=== PATIENT | female | born 1990 | race Two or more races ===

== ENCOUNTER 2016-11-16 13:02 | Emergency (ER) | payer SELFPAY ==
[~2016-11-16] VITALS: Ht 165.1 cm; Wt 67.6 kg
[2016-11-16 14:07] LABS: BILIRUBIN,URINE NEGATIVE (NEG); GLUCOSE,URINE NEGATIVE (NEG); NITRITE,URINE NEGATIVE (NEG); PH,URINE 5.5; PROTEIN,URINE NEGATIVE (NEG-TRACE); UROBILINOGEN,URINE 0.2 mg/dL (0.2 mg/dL)
[2016-11-16 14:40] LABS: BASO # 0.1 x10^3/uL (0.0-0.2); BASO % 1 % (0-3); EOS % 1 % (0-3); HEMATOCRIT 39.2 % (36.0-47.0); HEMOGLOBIN 13.5 g/dL (12.0-15.5); LYMPH # 1.7 x10^3/uL (1.0-4.8); LYMPH % 26 % (24-48); MEAN CORPUSCULAR HEMOGLOBIN 30 pg (25-35); MEAN CORPUSCULAR HGB CONC 35 g/dL (31-37); MEAN CORPUSCULAR VOLUME 87 fL (79-100); MONO % 8 % (0-9); NEUT % 64 % (31-73); PLATELET COUNT 194 x10^3/uL (140-400); RED BLOOD COUNT 4.51 x10^6/uL (3.50-5.40); RED CELL DISTRIBUTION WIDTH 13.7 % (11.5-14.5); WHITE BLOOD COUNT 6.7 x10^3/uL (4.0-11.0)
[2016-11-16 14:48] LABS: BACTERIA,URINE FEW /HPF (0-FEW); RBC,URINE 0 /HPF (0-2); SQUAMOUS EPITHELIAL CELL,UR OCC /LPF; WBC,URINE OCC /HPF (0-4)
--- NOTE | 2016-11-16 14:49 | RAD ---
Early OB ultrasound History: abd pain in Technique: Realtime grayscale examination of the pelvis was performed transvaginally. Findings: The uterus measures 12.3 x 7.2 x 9.1 cm. An intrauterine is detected, with heart tones measuring 162 beats per minute. A gestational sac and yolk sac are seen. [place]-rump length measures 3.4 millimeters. The pole measures 10 weeks and 2 days. EDC by ultrasound is 06/12/2017. EDC by LMP is 06/14/2017 Normal right ovary measuring 3.5 x 2.1 x 1.5 cm. The left ovary measures 4.2 x 3.2 x 2.6 cm with a simple cyst measuring 2.4 x 3.1 x 2.2 cm. Impression: 1. A single intrauterine is detected with pole length corresponding to an age of 10 weeks and 2 days. EDC by ultrasound is 06/12/2017 and by LMP is 06/14/2017. heart rate is 162 bpm. 2. Simple left ovarian cyst.
[2016-11-16 14:54] LABS: CALCIUM 8.8 mg/dL (8.5-10.1); CREATININE 0.6 mg/dL (0.6-1.0); POTASSIUM 3.4 mmol/L (3.5-5.1)
[2016-11-16 15:00] LABS: ALBUMIN 3.8 g/dL (3.4-5.0); ALBUMIN/GLOBULIN RATIO 0.8 (1.0-1.7); TOTAL BILIRUBIN 0.3 mg/dL (0.2-1.0); TOTAL PROTEIN 8.5 g/dL (6.4-8.2)
[2016-11-16] MEDS ORDERED: METR500T PO (16:04)
--- NOTE | 2016-11-16 16:04 | PHYS DOC ---
Past Medical History Past Medical History: No Pertinent History Past Surgical History: Appendectomy Alcohol Use: None Drug Use: None Adult General Chief Complaint Chief Complaint: ABDOMINAL PAIN IN HPI HPI Patient is a 26 year old female 5 para 4 who presents today with bilateral lower abdominal pain intermittently for 2 weeks. Patient states she is currently 11 weeks . Patient states she was seen at a local clinic and was sent to the ED to be evaluated. Patient denies any vaginal bleeding. Denies any back pain. Denies any urgency frequency dysuria. Denies any concerns for STDs. Review of Systems Review of Systems Constitutional: Denies fever or chills [] Eyes: Denies change in visual acuity, redness, or eye pain [] HENT: Denies nasal congestion or sore throat [] Respiratory: Denies cough or shortness of breath [] Cardiovascular: No additional information not addressed in HPI [] GI: Abdominal pain in : Denies dysuria or hematuria [] Musculoskeletal: Denies back pain or joint pain [] Integument: Denies rash or skin lesions [] Neurologic: Denies headache, focal weakness or sensory changes [] Endocrine: Denies polyuria or polydipsia [] Allergies Allergies Allergies Coded Allergies Type Severity Reaction Last Updated Verified morphine Allergy Intermediate Rash 11/16/16 Yes Physical Exam Physical Exam Constitutional: Well developed, well nourished, no acute distress, non-toxic appearance. [] HENT: Normocephalic, atraumatic, bilateral external ears normal, oropharynx moist, no oral exudates, nose normal. [] Eyes: PERRLA, EOMI, conjunctiva normal, no discharge. [] Neck: Normal range of motion, no tenderness, supple, no stridor. [] Cardiovascular:Heart rate regular rhythm, no murmur [] Lungs & Thorax: Bilateral breath sounds clear to auscultation [] Abdomen: Bowel sounds normal, soft, no tenderness, no masses, no pulsatile masses. [] Pelvic exam External pelvic appears normal, cervix is closed, no CMT, no adnexal tenderness , small amount of discharge white in color in the vaginal vault, Skin: Warm, dry, no erythema, no rash. [] Back: No tenderness, no CVA tenderness. [] Extremities: No tenderness, no cyanosis, no clubbing, ROM intact, no edema. [] Neurologic: Alert and oriented X 3, normal motor function, normal sensory function, no focal deficits noted. [] Psychologic: Affect normal, judgement normal, mood normal. [] Current Patient Data Vital Signs Vital Signs Date Time Temp Pulse Resp B/P (MAP) Pulse Ox O2 Delivery O2 Flow Rate FiO2 11/16/16 15:17 45 16 104/50 (68) 99 Room Air 11/16/16 13:32 98.4 98.4 Lab Values Laboratory Tests Test 11/16/16 12:48 11/16/16 13:30 11/16/16 14:30 POC Urine HCG, Qualitative Hcg positive (Negative) Urine Color Yellow Urine Clarity Clear Urine pH 5.5 Urine Specific Christoval <=1.005 Urine Protein Negative mg/dL (NEG-TRACE) Urine Glucose (UA) Negative mg/dL (NEG) Urine Ketones (Stick) Negative mg/dL (NEG) Urine Blood Negative (NEG) Urine Nitrite Negative (NEG) Urine Bilirubin Negative (NEG) Urine Urobilinogen Dipstick 0.2 mg/dL (0.2 mg/dL) Urine Leukocyte Esterase Negative (NEG) Urine RBC 0 /HPF (0-2) Urine WBC Occ /HPF (0-4) Urine Squamous Epithelial Cells Occ /LPF Urine Bacteria Few /HPF (0-FEW) White Blood Count 6.7 x10^3/uL (4.0-11.0) Red Blood Count 4.51 x10^6/uL (3.50-5.40) Hemoglobin 13.5 g/dL (12.0-15.5) Hematocrit 39.2 % (36.0-47.0) Mean Corpuscular Volume 87 fL (79-100) Mean Corpuscular Hemoglobin 30 pg (25-35) Mean Corpuscular Hemoglobin Concent 35 g/dL (31-37) Red Cell Distribution Width 13.7 % (11.5-14.5) Platelet Count 194 x10^3/uL (140-400) Neutrophils (%) (Auto) 64 % (31-73) Lymphocytes (%) (Auto) 26 % (24-48) Monocytes (%) (Auto) 8 % (0-9) Eosinophils (%) (Auto) 1 % (0-3) Basophils (%) (Auto) 1 % (0-3) Neutrophils # (Auto) 4.3 x10^3uL (1.8-7.7) Lymphocytes # (Auto) 1.7 x10^3/uL (1.0-4.8) Monocytes # (Auto) 0.5 x10^3/uL (0.0-1.1) Eosinophils # (Auto) 0.1 x10^3/uL (0.0-0.7) Basophils # (Auto) 0.1 x10^3/uL (0.0-0.2) Maternal Serum HCG Beta Subunit 45759 mIU/mL (0-5) H Sodium Level 139 mmol/L (136-145) Potassium Level 3.4 mmol/L (3.5-5.1) L Chloride Level 103 mmol/L (98-107) Carbon Dioxide Level 27 mmol/L (21-32) Anion Gap 9 (6-14) Blood Urea Nitrogen 5 mg/dL (7-20) L Creatinine 0.6 mg/dL (0.6-1.0) Estimated GFR (Cockcroft-Gault) 119.0 BUN/Creatinine Ratio 8 (6-20) Glucose Level 82 mg/dL (70-99) Calcium Level 8.8 mg/dL (8.5-10.1) Total Bilirubin 0.3 mg/dL (0.2-1.0) Aspartate Amino Transferase (AST) 18 U/L (15-37) Alanine Aminotransferase (ALT) 18 U/L (14-59) Alkaline Phosphatase 45 U/L (46-116) L Total Protein 8.5 g/dL (6.4-8.2) H Albumin 3.8 g/dL (3.4-5.0) Albumin/Globulin Ratio 0.8 (1.0-1.7) L Lipase 190 U/L (73-393) Laboratory Tests 11/16/16 14:30 Laboratory Tests 11/16/16 14:30 Microbiology 11/16/16 Wet Prep - Final, Complete EKG EKG [] Radiology/Procedures Radiology/Procedures []PROCEDURE: OB < 14 WKS Early OB ultrasound History: abd pain in Technique: Realtime grayscale examination of the pelvis was performed transvaginally. Findings: The uterus measures 12.3 x 7.2 x 9.1 cm. An intrauterine is detected, with heart tones measuring 162 beats per minute. A gestational sac and yolk sac are seen. [place]-rump length measures 3.4 millimeters. The pole measures 10 weeks and 2 days. EDC by ultrasound is 06/12/2017. EDC by LMP is 06/14/2017 Normal right ovary measuring 3.5 x 2.1 x 1.5 cm. The left ovary measures 4.2 x 3.2 x 2.6 cm with a simple cyst measuring 2.4 x 3.1 x 2.2 cm. Impression: 1. A single intrauterine is detected with pole length corresponding to an age of 10 weeks and 2 days. EDC by ultrasound is 06/12/2017 and by LMP is 06/14/2017. heart rate is 162 bpm. 2. Simple left ovarian cyst. DICTATED and SIGNED BY: RIO WELLS MD DATE: 11/16/16 8766 CC: ALLYSSA ALVAREZ APRN; NON,STAFF; UNKNOWN PCP NAME ~ Course & Med Decision Making Course & Med Decision Making Pertinent Labs and Imaging studies reviewed. (See chart for details) This is a 26-year-old female patient presenting to the ED today with lower abdominal pain intermittently for 2 weeks. Positive urine hCG, CBC CMP lipase with no acute findings. Beta hCG [id number]. Urine analysis is negative for infection. Wet prep positive for BV. Patient will be discharged and Flagyl. First trimester OB ultrasound positive for IUP heart rate of 162 gestational age 10 weeks. Patient also has a simple left ovarian cyst. Patient will be discharged with instructions to follow-up with her [employer]. She states she has an appointment in 24 hours. She was provided return precautions and discharged in stable condition. Dragon Disclaimer Dragon Disclaimer This electronic medical record was generated, in whole or in part, using a voice recognition dictation system. Departure Departure Impression: Primary Impression: Abdominal pain affecting Additional Impression: Bacterial vaginosis Disposition: 01 HOME, SELF-CARE Condition: STABLE Referrals: UNKNOWN PCP NAME (PCP) Follow-up with your [employer] in the next 24-48 hours Patient Instructions: Abdominal Pain During , Bacterial Vaginosis, [id number] Additional Instructions: You were seen for abdominal pain in . We recommend you follow-up with your [employer] tomorrow. Take Tylenol as needed for pain. You also have bacterial vaginosis. This is not an STD. Complete your antibiotics we prescribed to clear this infection. Scripts Metronidazole (FLAGYL) 500 Mg Tablet 1 TAB PO BID, #14 TAB Prov: ALLYSSA ALVAREZ APRN 11/16/16 Problem Qualifiers ALLYSSA ALVAREZ APRN Nov 16, 2016 16:04
[2016-11-16 16:07] VITALS: BP 108/58
== END 2016-11-16 16:25 | disposition home or self-care (01) ==
LOC: ER 13:02
DX: O26.891 Other specified pregnancy related conditions, first trimester (principal); O23.591 Infection of other part of genital tract in pregnancy, first trimester; R10.9 Unspecified abdominal pain; N76.0 Acute vaginitis; Z3A.11 11 weeks gestation of pregnancy; Z90.89 Acquired absence of other organs
CPT/HCPCS: 36415; 76801; 80053; 81001; 81025; 83690; 84702; 85027; 87491; 87591; 99285; Q0111

== ENCOUNTER 2017-05-29 21:21 | Inpatient (IN) | payer SELFPAY ==
[2017-05-29] MEDS: IV RINGERS,LACTATED 1000ML 1,000 ML IV ×2 (22:30)
[2017-05-30] MEDS: AMPICILLIN SODIUM IV Push 2 GM VIAL. IVP ×2
[2017-05-30] MEDS: IV RINGERS,LACTATED 1000ML 1,000 ML IV ×2 (00:01)
[2017-05-30] MEDS ORDERED: ACETAMINOPHEN 325 MG TABLET. PO ×2 (00:45)
[2017-05-30] MEDS ORDERED: IBUPROFEN 600 MG TABLET. PO ×2 (00:45)
[2017-05-30] MEDS ORDERED: LIDOCAINE 1% PF 30 ML VIAL. INJ ×2 (00:45)
[2017-05-30] MEDS ORDERED: TERBUTALINE 1 MG/ML VIAL. SQ ×2 (00:45)
[2017-05-30] MEDS ORDERED: MAG HYDROX/ALUMINUM HYD/SIMETH 30 ML ORAL.SUSP PO ×2 (00:45)
[2017-05-30] MEDS ORDERED: ONDANSETRON PF 4 MG/2 ML VIAL. IV ×2 (00:45)
[2017-05-30 00:58] LABS: ADD MAN DIFF? NO
[2017-05-30 01:01] LABS: BASO # 0.1 x10^3/uL (0.0-0.2); BASO % 1 % (0-3); EOS # 0.1 x10^3/uL (0.0-0.7); EOS % 1 % (0-3); HEMATOCRIT 36.6 % (36.0-47.0); HEMOGLOBIN 12.6 g/dL (12.0-15.5); LYMPH # 1.9 x10^3/uL (1.0-4.8); LYMPH % 22 % (24-48); MEAN CORPUSCULAR HEMOGLOBIN 30 pg (25-35); MEAN CORPUSCULAR HGB CONC 34 g/dL (31-37); MEAN CORPUSCULAR VOLUME 86 fL (79-100); MONO # 0.8 x10^3/uL (0.0-1.1); MONO % 9 % (0-9); NEUT # 5.8 x10^3uL (1.8-7.7); NEUT % 67 % (31-73); PLATELET COUNT 221 x10^3/uL (140-400); RED BLOOD COUNT 4.23 x10^6/uL (3.50-5.40); RED CELL DISTRIBUTION WIDTH 13.5 % (11.5-14.5); WHITE BLOOD COUNT 8.6 x10^3/uL (4.0-11.0)
[2017-05-30] MEDS: fentaNYL PF VIAL 100 MCG/2 ML VIAL IV ×6 (01:25→03:05)
[2017-05-30] MEDS: OXYTOCIN 30 UNIT/500 ML PREMIX 500 ML IV ×2 (02:14)
[2017-05-30] MEDS: AMPICILLIN SODIUM IV Push 1 GM VIAL. IVP ×2 (04:00)
[2017-05-30] MEDS ORDERED: L&D EPIDURAL CASSETTE 100 ML EP ×2 (05:30)
[2017-05-30] MEDS: IBUPROFEN 800 MG TABLET. PO ×2 (08:31)
[2017-05-30] MEDS ORDERED: L&D EPIDURAL SYRINGE 50 ML EP ×2 (10:00)
[2017-05-30] MEDS: oxyCODONE/APAP 5/325 1 TAB TABLET PO ×4 (13:25→20:39)
[2017-05-30] MEDS: DOCUSATE SODIUM 100 MG CAPSULE. PO ×2 (20:38)
[2017-05-31] MEDS ORDERED: SUCCINYLCHOLINE 200 MG/10 ML VIAL. ×2 (07:18)
[2017-05-31] MEDS ORDERED: PROPOFOL 20 ML IV ×2 (07:18)
[2017-05-31] MEDS ORDERED: fentaNYL PF VIAL 100 MCG/2 ML VIAL ×4 (07:18→08:39)
[2017-05-31] MEDS ORDERED: LIDOCAINE 2% PF Vial for OR 5 ML VIAL. ×2 (07:18)
[2017-05-31] MEDS ORDERED: ROCURONIUM 50 MG/5 ML VIAL. ×2 (07:18)
[2017-05-31] MEDS: IV RINGERS,LACTATED 1000ML 1,000 ML IV ×4 (07:24→09:14)
[2017-05-31] MEDS ORDERED: fentaNYL PF VIAL 100 MCG/2 ML VIAL IV ×2 (07:30)
[2017-05-31] MEDS ORDERED: HYDROmorphone 2 MG/ML VIAL IV ×2 (07:30)
[2017-05-31] MEDS ORDERED: PROCHLORPERAZINE 10 MG/2 ML VIAL. IV ×2 (07:30)
[2017-05-31] MEDS ORDERED: ONDANSETRON PF 4 MG/2 ML VIAL. IV ×2 (07:30)
[2017-05-31] MEDS ORDERED: MORPHINE SULFATE 2 MG/ML DISP.SYRIN. IV ×2 (07:30)
[2017-05-31] MEDS ORDERED: LIDOCAINE 1% PF 2 ML VIAL. ID ×2 (07:30)
[2017-05-31] MEDS: BUPIVACAINE-EPI 0.25%-1:200000 50 ML VIAL. ×2 (07:30)
[2017-05-31 07:35] LABS: RPR Non Reactive (Non Reactive)
[2017-05-31] MEDS ORDERED: DEXAMETHASONE SOD PHOS 20 MG/5 ML VIAL. ×2 (07:59)
[2017-05-31] MEDS ORDERED: ONDANSETRON PF 4 MG/2 ML VIAL. ×2 (07:59)
[2017-05-31] MEDS ORDERED: FAMOTIDINE 20 MG/2 ML VIAL ×2 (08:00)
[2017-05-31] MEDS ORDERED: METOCLOPRAMIDE HCL 10 MG/2 ML VIAL. ×2 (08:00)
[2017-05-31] MEDS ORDERED: KETOROLAC 30 MG/ML INJ FOR OR. INJ ×2 (08:18)
[2017-05-31] MEDS ORDERED: DESFLURANE 31 TO 60 MINUTES IH ×2 (08:19)
[2017-05-31] MEDS ORDERED: GLYCOPYRROLATE 1 MG/5 ML VIAL. ×2 (08:25)
[2017-05-31] MEDS ORDERED: NEOSTIGMINE METHYLSULFATE 5 MG/5 ML SYRINGE. ×2 (08:25)
[2017-05-31] MEDS: fentaNYL PF VIAL 100 MCG/2 ML VIAL IV ×2 (09:06)
[2017-05-31] MEDS: DIPHTH,PERTUSS(ACELL),TET TOX 0.5 ML DISP.SYRIN. VAX IM ×2 (09:30)
[2017-05-31] MEDS: IBUPROFEN 800 MG TABLET. PO ×4 (11:04→17:31)
[2017-05-31] MEDS: MAGNESIUM HYDROXIDE 2,400 MG/30 ML ORAL.SUSP. PO ×2 (20:28)
[2017-05-31] MEDS: DOCUSATE SODIUM 100 MG CAPSULE. PO ×2 (20:29)
[2017-06-01] MEDS: IBUPROFEN 800 MG TABLET. PO ×4 (06:22→17:25)
[2017-06-01] MEDS: DOCUSATE SODIUM 100 MG CAPSULE. PO ×2 (09:57)
[2017-06-01] MEDS: oxyCODONE/APAP 5/325 1 TAB TABLET PO ×2 (17:24)
== END 2017-06-01 17:55 | disposition home or self-care (01) | DRG 767 ==
LOC: 3 SO LND 21:21 → 3 NORTH 05-30 07:05
PROC: 0UL70ZZ Occlusion of Bilateral Fallopian Tubes, Open Approach (ICD-10-PCS; 2017-05-31 07:30)
PROC: 10E0XZZ Delivery of Products of Conception, External Approach (ICD-10-PCS; principal; 2017-05-31 07:50)
PROC: 10907ZC Drainage of Amniotic Fluid, Therapeutic from Products of Conception, Via Natural or Artificial Opening (ICD-10-PCS; 2017-05-31 07:50)
PROC: 3E0234Z Introduction of Serum, Toxoid and Vaccine into Muscle, Percutaneous Approach (ICD-10-PCS; 2017-05-31 07:50)
DX: O80 Encounter for full-term uncomplicated delivery (principal); Z23 Encounter for immunization; Z30.2 Encounter for sterilization; Z37.0 Single live birth; Z3A.37 37 weeks gestation of pregnancy
CPT/HCPCS: 36415; 85025; 86593; 86850; 86900; 86901; 88302; 90715; C1769; G0378; J0290; J0330; J1100; J1885; J2405; J2590; J2704; J2710; J2765; J3010; J3490; J7120; S0028